=== PATIENT | male | born 1955 | race Caucasian/White ===

== ENCOUNTER 2017-06-02 09:34 | Day surgery (SDC) | payer OTHER ==
[~2017-06-02] VITALS: Ht 175.3 cm; Wt 83.0 kg
[2017-06-02] VITALS (11 sets, daily range): BP systolic 121–150; BP diastolic 77–95; PULSE 62–71; RESP 13–24; Ht 175.3 cm; Wt 83.0 kg
[~2017-06-02 09:34] MED LIST: ACETAMINOPHEN 1000 MG/100 ML IVPB ONE; CEFAZOLIN 1 GM/50 ML (PMX) 50 ML IVPB SCH; SOD CHLORIDE 0.9% 1,000 ML IV SCH
[2017-06-02] MEDS ORDERED: GEMF600T60 PO (09:58)
[2017-06-02] MEDS ORDERED: SIMV10TA PO (09:59)
[2017-06-02] MEDS ORDERED: POLYMYXIN/BACITRACIN 1L IRRIG ONE (12:50)
[2017-06-02] MEDS ORDERED: BUPIVACAINE 0.25% (MPF) 30 ML INJ ONE (12:50)
[2017-06-02] MEDS ORDERED: MEPERIDINE 25 MG INJ IV PRN (13:00)
[2017-06-02] MEDS ORDERED: ONDANSETRON 4 MG INJ IV PRN (13:00)
[2017-06-02] MEDS ORDERED: EPHEDrine SULFATE 50 MG/5 ML SYG IV PRN (13:00)
[2017-06-02] MEDS ORDERED: OXYCODONE/ACETAMINOPHEN (5/325) TAB PO PRN ×2 (13:00)
[2017-06-02] MEDS ORDERED: DIPHENHYDRAMINE 50 MG INJ IV PRN (13:00)
[2017-06-02] MEDS ORDERED: FENTAnyl 50 MCG/ML VIAL IV PRN ×2 (13:00)
[2017-06-02] MEDS ORDERED: METOCLOPRAMIDE 10 MG INJ IV PRN (13:00)
[2017-06-02] MEDS ORDERED: hydrALAzine 20 MG INJ IV PRN (13:00)
[2017-06-02] MEDS ORDERED: HYDROmorphONE (0.2 MG/ML) 10ML SYG IV PRN ×3 (13:00)
[2017-06-02] MEDS ORDERED: LORAZEPAM 2 MG INJ IV PRN (13:00)
[2017-06-02] MEDS ORDERED: KETOROLAC 30 MG INJ IV PRN (13:00)
[2017-06-02] MEDS ORDERED: LABETALOL HCL 20MG INJ IV PRN (13:00)
[2017-06-02] MEDS ORDERED: FENTAnyl 50 MCG/ML VIAL ONE ×2 (13:03→13:37)
[2017-06-02] MEDS ORDERED: LIDOCAINE 2% (SDV) 5 ML INJ ONE (13:03)
[2017-06-02] MEDS ORDERED: CEFAZOLIN 1 GM INJ ONE (13:03)
[2017-06-02] MEDS ORDERED: ROCURONIUM 50 MG INJ ONE (13:03)
[2017-06-02] MEDS ORDERED: PROPOFOL 100 ML ONE (13:03)
[2017-06-02] MEDS ORDERED: DEXAMETHASONE 4 MG/ML 1 ML INJ ONE (13:04)
[2017-06-02] MEDS ORDERED: HYDROCODONE/APAP (5/325) TAB PO ONE (14:00)
[2017-06-02] MEDS ORDERED: SUGAMMADEX SODIUM 200 MG/2 ML VIAL IV ONE (14:01)
[2017-06-02] MEDS ORDERED: ONDANSETRON 4 MG INJ ONE (14:02)
--- NOTE | 2017-06-02 14:03 | OPR ---
Date/Time of Note Date/Time of Note DATE: 06/02/17 TIME: 13:59 Operative Report Procedure Date: Jun 02, 2017 Preoperative Diagnosis recurrent left inguinal hernia left intraperitoneal foreign body Postoperative Diagnosis same Operation/Procedure Performed 1. laparoscopic recurrent left inguinal hernia repair with bard soft mesh 2. laparoscopic removal of left intraperitoneal foreign body 3. therapeutic injection of subcutaneous local anesthesia Surgeon see signature line Solution Specialist none Anesthesia Type: general Estimated Blood Loss: 10 - 50 ml's Transfusion none Specimen left intraabdominal peritoneal foreign body Grafts/Implants none Complications none Pt Condition Post Procedure: stable Indications This is a 61 he requests surgical repair. Risks alternatives benefits and percent were discussed the patient. Patient's best understanding consents to the operation.-year-old male with recurrent left inguinal hernia. Procedure Description Patient taken to the OR and prepped and draped in usual sterile fashion. Surgical timeout was performed. IV antibiotics given. Infraumbilical transverse incision is made with a 15 blade. Dissection Carrs carried onto the fascia. The fascia was grasped with Bishop's and divided with curved Larsen scissors. 0 Vicryl U stitch was placed to the fascia. Blueness on trocar is introduced. Pneumoperitoneum is established. Right inferior cody-umbilical 5 mm ports were placed 2 under direct visualization. Initial dissection was performed with laparoscopic harmonic allowing for a mobilization of the peritoneum to create the peritoneal flaps for the left groin. This was then further bluntly dissected the cord structures identified. The pubic tubercle was identified. There is a small indirect hernia that was identified this was reduced and repaired by using a Bard soft mesh cut to fashion with the keyhole. This was placed around the cord structures and secured in place with initial placement of the secure strap at the pubic tubercle and then along the superior side of the anterior abdominal wall. The peritoneal flap was then reapproximated to cover the mesh with secure strap. Additionally there was a foreign body found in the peritoneum which might have contributed also to the pain. This peritoneum was resected using laparoscopic harmonic emil and retrieved through the port and sent for specimen. There is good hemostasis. The mesh was completely covered with flaps of peritoneum. All ports removed under direct visualization. 0 Vicryl U stitch was tied down. Skin was closed using skin rubén. Therapeutic subcutaneous local anesthesia was injected throughout the incision site. Dry dressings were applied. Michael FLORES Jun 02, 2017 14:03
[2017-06-02] MEDS: FENTAnyl 50 MCG/ML VIAL IV PRN ×2 (14:31→14:38)
== END 2017-06-02 16:15 | disposition home or self-care (01) ==
LOC: SDS 09:34
PROVIDERS: ATTEND Surgery
DX: K40.91 Unilateral inguinal hernia, without obstruction or gangrene, recurrent (principal); T18.2XXA Foreign body in stomach, initial encounter; X58.XXXA Exposure to other specified factors, initial encounter
CPT/HCPCS: 49402; 49651; J0131; J0690; J1100; J2405; J3010; Z7512; Z7610